=== PATIENT | female | born 1935 | race Caucasian/White ===

== ENCOUNTER 2018-04-09 11:00 | Inpatient (IN) | payer OTHER ==
[~2018-04-09] VITALS: Ht 152.4 cm; Wt 70.3 kg
[2018-04-09] MEDS ORDERED: ASA81 MG PO (12:05)
[2018-04-09] MEDS ORDERED: FLOVENT DISKUS50 MCG IH (12:05)
[2018-04-09] MEDS ORDERED: HYDRALAZINE HCL25 MG PO (12:05)
[2018-04-09] MEDS ORDERED: VIT C-ROSE HIP500 MG PO (12:05)
[2018-04-09] MEDS ORDERED: NORVASC10 MG PO (12:06)
[2018-04-09] MEDS ORDERED: OMEPRAZOLE20 M1 PO (12:06)
[2018-04-09] MEDS ORDERED: PRAVASTATIN SOD40 MG PO (12:06)
[2018-04-09] MEDS ORDERED: TOPROL XL50 M1 PO (12:07)
[2018-04-17] MEDS ORDERED: DOCUSATE SODIU100 MG PO (10:20)
[2018-04-17] MEDS ORDERED: GABAPENTIN800 MG PO (10:20)
[2018-04-17] MEDS ORDERED: AMOX-CLAV 875-1 EACH PO (10:21)
[2018-04-17] MEDS ORDERED: CLONAZEPAM1 MG PO (10:22)
[2018-04-17] MEDS ORDERED: PERCOCET 5-3251 EACH PO (10:22)
[2018-04-17] MEDS ORDERED: ACETAMINOPHEN-1 EAC2 PO (12:17)
== END 2018-04-17 12:23 | DRG 460 ==
LOC: PED 04-16 05:45 → O/R 04-16 05:45 → SURH 04-16 10:00 → PED 04-16 16:10
PROVIDERS: Orthopaedic Surgery Orthopaedic Surgery of the Spine
PROC: 0SG00AJ Fusion of Lumbar Vertebral Joint with Interbody Fusion Device, Posterior Approach, Anterior Column, Open Approach (ICD-10-PCS; 2018-04-16)
PROC: 0ST20ZZ Resection of Lumbar Vertebral Disc, Open Approach (ICD-10-PCS; 2018-04-16)
PROC: 07DS3ZZ Extraction of Vertebral Bone Marrow, Percutaneous Approach (ICD-10-PCS; 2018-04-16)
PROC: 0SG00A0 Fusion of Lumbar Vertebral Joint with Interbody Fusion Device, Anterior Approach, Anterior Column, Open Approach (ICD-10-PCS; principal; 2018-04-16 10:00)
DX: M48.061 Spinal stenosis, lumbar region without neurogenic claudication (principal); M43.16 Spondylolisthesis, lumbar region

== ENCOUNTER 2021-10-30 08:00 | Inpatient (IN) | payer OTHER ==
[~2021-10-30] VITALS: Ht 154.9 cm; Wt 66.7 kg
[~2021-10-30 08:00] MED LIST: ACETAMINOPHEN-1 EAC2 PO; AMOX-CLAV 875-1 EACH PO; ASA81 MG PO; CLONAZEPAM1 MG PO; DOCUSATE SODIU100 MG PO; FLOVENT DISKUS50 MCG IH; GABAPENTIN800 MG PO; HYDRALAZINE HCL25 MG PO; NORVASC10 MG PO; OMEPRAZOLE20 M1 PO; PERCOCET 5-3251 EACH PO; PRAVASTATIN SOD40 MG PO; TOPROL XL50 M1 PO; VIT C-ROSE HIP500 MG PO
[2021-11-17] MEDS ORDERED: TOPROL PO (09:17)
[2021-11-17] MEDS ORDERED: HYDRALAZINE HCL25 MG PO (10:10)
[2021-11-21] MEDS ORDERED: COLACE100 MG PO (07:19)
[2021-11-21] MEDS ORDERED: MEDROLPACK PO (07:20)
[2021-11-21] MEDS ORDERED: ACETAMINOPHEN-1 EAC2 PO (07:20)
== END 2021-11-22 11:49 | disposition home or self-care (01) | DRG 473 ==
LOC: ADM 08:00 → O/R 11-21 05:47 → SURH 11-21 07:00 → CIR.AMB 11-21 08:00 → EDSTATUS 11-21 08:00 → SURH 11-21 08:00 → SURG 11-21 13:59
PROVIDERS: ADMIT Orthopaedic Surgery Orthopaedic Surgery of the Spine; ATTEND Orthopaedic Surgery Orthopaedic Surgery of the Spine
PROC: 0RB30ZZ Excision of Cervical Vertebral Disc, Open Approach (ICD-10-PCS; 2021-11-21)
PROC: 0PB30ZZ Excision of Cervical Vertebra, Open Approach (ICD-10-PCS; 2021-11-21)
PROC: 07DS0ZZ Extraction of Vertebral Bone Marrow, Open Approach (ICD-10-PCS; 2021-11-21)
PROC: 0RG20A0 Fusion of 2 or more Cervical Vertebral Joints with Interbody Fusion Device, Anterior Approach, Anterior Column, Open Approach (ICD-10-PCS; principal; 2021-11-21 07:00)
DX: M50.021 Cervical disc disorder at C4-C5 level with myelopathy (principal); M48.02 Spinal stenosis, cervical region

== ENCOUNTER 2022-10-11 08:08 | Inpatient (IN) | payer OTHER ==
[~2022-10-11] VITALS: Ht 154.9 cm; Wt 64.4 kg
[~2022-10-11 08:08] MED LIST changes: +COLACE100 MG PO; +MEDROLPACK PO; +TOPROL PO
[2022-10-18] MEDS ORDERED: LOSARTAN-HCTZ1 EACH (08:04)
[2022-10-18] MEDS ORDERED: ARTHRITIS PAIN650 MG (08:04)
[2022-10-18] MEDS ORDERED: HYDRALAZINE HCL50 MG (08:04)
[2022-10-18] MEDS ORDERED: PRAVASTATIN SOD40 MG (08:04)
[2022-10-18] MEDS ORDERED: CLOPIDOGREL BIS75 MG (08:04)
[2022-10-18] MEDS ORDERED: ACETAMINOPHEN-1 EAC2 PO (09:42)
[2022-10-18] MEDS ORDERED: MEDROLPACK PO (09:42)
[2022-10-18] MEDS ORDERED: NEURONTIN800 MG PO (09:42)
[2022-10-18] MEDS ORDERED: AMOX-CLAV 875-1 EACH PO (09:42)
[2022-10-18] MEDS ORDERED: COLACE100 MG PO (09:42)
== END 2022-10-20 11:49 | DRG 455 ==
LOC: O/R 10-18 05:55 → PED 10-18 05:55 → LAB 10-18 08:06 → EDSTATUS 10-18 08:06 → PED 10-18 14:43
PROVIDERS: ADMIT Orthopaedic Surgery Orthopaedic Surgery of the Spine; ATTEND Orthopaedic Surgery Orthopaedic Surgery of the Spine
PROC: 0SG1071 Fusion of 2 or more Lumbar Vertebral Joints with Autologous Tissue Substitute, Posterior Approach, Posterior Column, Open Approach (ICD-10-PCS; 2022-10-18)
PROC: XRGD0R7 Fusion of Lumbosacral Joint using Custom-Made Anatomically Designed Interbody Fusion Device, Open Approach, New Technology Group 7 (ICD-10-PCS; 2022-10-18)
PROC: 0SG3071 Fusion of Lumbosacral Joint with Autologous Tissue Substitute, Posterior Approach, Posterior Column, Open Approach (ICD-10-PCS; 2022-10-18)
PROC: 0ST20ZZ Resection of Lumbar Vertebral Disc, Open Approach (ICD-10-PCS; 2022-10-18)
PROC: 0ST40ZZ Resection of Lumbosacral Disc, Open Approach (ICD-10-PCS; 2022-10-18)
PROC: 07DR0ZZ Extraction of Iliac Bone Marrow, Open Approach (ICD-10-PCS; 2022-10-18)
PROC: XRGC0R7 Fusion of 2 or more Lumbar Vertebral Joints using Custom-Made Anatomically Designed Interbody Fusion Device, Open Approach, New Technology Group 7 (ICD-10-PCS; principal; 2022-10-18 10:45)
DX: M48.062 Spinal stenosis, lumbar region with neurogenic claudication (principal); M41.56 Other secondary scoliosis, lumbar region; I10 Essential (primary) hypertension; M19.90 Unspecified osteoarthritis, unspecified site; M43.16 Spondylolisthesis, lumbar region